=== PATIENT | male | born 1980 | race African-American/Black ===

== ENCOUNTER 2022-03-18 17:38 | Emergency (ER) | payer MEDICAID, OTHER ==
[~2022-03-18] VITALS: Ht 172.7 cm; Wt 75.0 kg
[2022-03-18] MEDS ORDERED: LORAZEPAM 0.5MG TABLET PO ONE (18:15)
[2022-03-18 19:38] LABS: BASOPHILS % 0.5 % (0.0-2.0); EOSINOPHILS % 5.5 % (0.0-5.0); HEMATOCRIT. 40.4 % (42.0-52.0); HEMOGLOBIN. 13.4 g/dL (14.0-18.0); LYMPHOCYTES % 28.7 % (20.0-50.0); MEAN CORPUSCULAR HEMOGLOBIN 29.5 pg (28.0-32.0); MEAN CORPUSCULAR VOLUME 88.9 fL (80.0-94.0); MEAN PLATELET VOLUME 6.9 fl (7.4-10.4); MONOCYTES % 8.6 % (2.0-8.0); NEUTROPHILS % 56.7 % (40.0-76.0); PLATELET 297 x1000/uL (130-400); RED BLOOD CELL COUNT 4.54 mill/uL (4.7-6.1); RED CELL DISTRIBUTION WIDTH 13.9 % (11.6-14.6)
[2022-03-18 19:56] LABS: CHLORIDE 105 mEq/L (98-107)
[2022-03-18 20:01] LABS: ETHANOL BLOOD < 10 mg/dL
[2022-03-18 21:21] LABS: CLARITY URINE CLEAR (CLEAR); COLOR URINE YELLOW (YELLOW); KETONES URINE NEGATIVE (NEGATIVE); LEUKOCYTE ESTERASE URINE NEGATIVE (NEGATIVE); NITRITE URINE NEGATIVE (NEGATIVE); OCCULT BLOOD URINE NEGATIVE (NEGATIVE); PROTEIN URINE NEGATIVE (NEGATIVE); SPECIFIC GRAVITY URINE 1.012 (1.005-1.030)
[2022-03-18 21:36] LABS: *AMPHETAMINES SCREEN URINE PRESUMTIVE POSITIVE (NEGATIVE); *BARBITURATES SCREEN URINE NEGATIVE (NEGATIVE); *BENZODIAZEPINES SCREEN URINE NEGATIVE (NEGATIVE); *COCAINE SCREEN URINE NEGATIVE (NEGATIVE); CANNABINOID URINE SCREEN PRESUMTIVE POSITIVE (NEGATIVE); METHADONE URINE SCREEN NEGATIVE (NEGATIVE); OPIATES URINE SCREEN NEGATIVE (NEGATIVE); PHENCYCLIDINE URINE SCREEN NEGATIVE (NEGATIVE)
[2022-03-19] MEDS ORDERED: HYDROXYZINE 25MG TABLET PO PRN (10:15)
[2022-03-19] MEDS: SERTRALINE HCL 25MG TABLET PO SCH (10:50)
[2022-03-19] MEDS: QUETIAPINE FUMARATE 25MG TABLET PO SCH ×2 (10:50→17:32)
[2022-03-20] MEDS: SERTRALINE HCL 25MG TABLET PO SCH (10:15)
[2022-03-20] MEDS: QUETIAPINE FUMARATE 25MG TABLET PO SCH (10:15)
[2022-03-20] MEDS: QUETIAPINE FUMARATE 50MG TABLET PO SCH (19:00)
[2022-03-21] MEDS: SERTRALINE HCL 25MG TABLET PO SCH (09:00)
[2022-03-21] MEDS: QUETIAPINE FUMARATE 50MG TABLET PO SCH (09:00)
[2022-03-21 12:04] VITALS: BP 102/60
== END 2022-03-21 12:17 ==
LOC: ER 18:01
DX: F32.A Depression, unspecified (principal); F20.9 Schizophrenia, unspecified; R45.851 Suicidal ideations; F41.9 Anxiety disorder, unspecified; F12.10 Cannabis abuse, uncomplicated; F15.10 Other stimulant abuse, uncomplicated; J45.909 Unspecified asthma, uncomplicated; Z75.1 Person awaiting admission to adequate facility elsewhere; Z91.14 Patient's other noncompliance with medication regimen; Z20.822 Contact with and (suspected) exposure to COVID-19
CPT/HCPCS: 36415; 80053; 80305; 80307; 80320; 80329; 81003; 85025; 99285; C9803; U0003; U0005; Z7610; G0480